=== PATIENT | female | born 1955 | race Caucasian/White ===

== ENCOUNTER → 2024-04-24 | Outpatient (CLI) | payer OTHER ==
[2024-04-24 13:23] LABS: BASOPHILS # (AUTO) 0.04 K/uL (0.00-0.20); BASOPHILS % (AUTO) 0.6 % (0.0-5.0); EOSINOPHILS # (AUTO) 0.12 K/uL (0.00-0.70); EOSINOPHILS % (AUTO) 1.8 % (0.0-8.0); HEMATOCRIT 38.1 % (36-48); IMMATURE GRANULOCYTE ABSOLUTE 0.02 K/uL (0-1); LYMPHOCYTES # (AUTO) 1.9 K/uL (1.0-4.8); LYMPHOCYTES % (AUTO) 29.1 % (21.0-51.0); MEAN CORPUSCULAR HEMOGLOBIN 28.9 pg (27.0-33.0); MEAN CORPUSCULAR HGB CONC 31.8 g/dL (32.0-36.0); MEAN CORPUSCULAR VOLUME 90.9 fL (79-99); MONOCYTES % (AUTO) 14.6 % (3.0-13.0); NEUTROPHILS # (AUTO) 3.6 K/uL (1.8-7.7); NEUTROPHILS % (AUTO) 53.6 % (40.0-77.0); PLATELET COUNT (AUTO) 217 K/uL (130-400); RED BLOOD CELL COUNT(AUTO) 4.19 MIL/uL (4.00-5.50); RED CELL DISTRIBUTION WIDTH 13.6 % (11.0-15.5); WHITE BLOOD COUNT (AUTO) 6.7 K/uL (4.8-10.8)
[2024-04-24 15:17] LABS: ALBUMIN 3.6 g/dL (3.5-5.0); BILIRUBIN,TOTAL 0.3 mg/dL (0.2-1.0); CREATININE 0.8 mg/dL (0.5-1.0); POTASSIUM 4.8 mmol/L (3.5-5.1); TOTAL PROTEIN, SERUM 7.8 g/dL (6.0-8.3)
== END | disposition home or self-care (01) ==
LOC: LAB 12:43
PROVIDERS: ATTEND Internal Medicine Gastroenterology
DX: K76.9 Liver disease, unspecified (principal)
CPT/HCPCS: 36415; 80053; 85025

== ENCOUNTER 2024-11-13 07:12 | Observation (INO) | payer OTHER ==
[2024-11-11 10:45] VITALS: BP 140/70; PULSE 54; RESP 18; TEMP 97.7
--- NOTE | 2024-11-11 10:45 | EKG ---
[facility] Test Date: 2024-11-11 Test Time: 11:27:30 Pat Name: SAE MORAN Department: [facility] Room: Gender: F Clinic Administrator: [id number] : 1955 Requested By: ALEISHA MATHIAS Order Number: [id number] Reading MD: Toño Owens Measurements Intervals [place] Rate: 56 P: 38 ID: [id number] QRS: 60 QRSD: 80 T: 38 QT: 440 QTc: 424 Interpretive Statements Sinus rhythm No previous ECG available for comparison Electronically Signed On 11-12-2024 12:48:19 GIFT WRAPPER by Toño Owens Please click the below link to view image of tracing.
[2024-11-11 11:09] LABS: BASOPHILS # (AUTO) 0.06 K/uL (0.00-0.20); BASOPHILS % (AUTO) 0.9 % (0.0-5.0); HEMATOCRIT 37.8 % (36-48); IMMATURE GRANULOCYTE ABSOLUTE 0.02 K/uL (0-1); LYMPHOCYTES # (AUTO) 1.6 K/uL (1.0-4.8); LYMPHOCYTES % (AUTO) 23.7 % (21.0-51.0); MEAN CORPUSCULAR HEMOGLOBIN 29.8 pg (27.0-33.0); MEAN CORPUSCULAR HGB CONC 32.3 g/dL (32.0-36.0); MEAN CORPUSCULAR VOLUME 92.2 fL (79-99); MONOCYTES # (AUTO) 0.5 K/uL (0.1-1.0); MONOCYTES % (AUTO) 7.4 % (3.0-13.0); NEUTROPHILS # (AUTO) 4.4 K/uL (1.8-7.7); NEUTROPHILS % (AUTO) 64.7 % (40.0-77.0); PLATELET COUNT (AUTO) 225 K/uL (130-400); RED CELL DISTRIBUTION WIDTH 13.7 % (11.0-15.5); WHITE BLOOD COUNT (AUTO) 6.8 K/uL (4.8-10.8)
[2024-11-11 11:15] LABS: CREATININE 0.6 mg/dL (0.5-1.0); POTASSIUM 4.5 mmol/L (3.5-5.1)
[~2024-11-13] VITALS: Ht 170.2 cm; Wt 74.4 kg
[2024-11-13] VITALS (27 sets, daily range): BP systolic 126–190; BP diastolic 58–81; PULSE 50–69; RESP 14–20; TEMP 97–98.7; O2SAT 97–98
[~2024-11-13 07:12] MED LIST: FAMO40TA7 PO; OMEP40CA21 PO
[2024-11-13] MEDS: ceFAZolin SODIUM 2 GM VIAL ONE (07:14)
[2024-11-13] MEDS: LACTATED RINGERS 1000ML 1,000 ML IV ONE (07:30)
[2024-11-13] MEDS ORDERED: ESCI-8 PO (07:57)
[2024-11-13] MEDS ORDERED: GABA300C PO (07:57)
[2024-11-13] MEDS ORDERED: ketaMINE 50MG/ML SYRINGE 50 MG/ML DISP.SYRIN ONE (08:09)
[2024-11-13] MEDS ORDERED: LIDOCAINE PF 100MG/5ML (2%) SYRINGE 5ML ONE (08:41)
[2024-11-13] MEDS ORDERED: proPOFol 10 MG/ML 20ML VIAL IV ONE (08:41)
[2024-11-13] MEDS ORDERED: FENTanyl CITRate PF 50 MCG/1 ML 2ML VIAL ONE (08:42)
[2024-11-13] MEDS ORDERED: rocuRONium bROMide 10MG/1ML 5ML VL ONE (08:42)
[2024-11-13] MEDS ORDERED: BUPIvacaine/PF 0.5% 30ML VIAL ONE (08:57)
[2024-11-13] MEDS ORDERED: ondanSETRON 4MG INJ ONE (10:31)
[2024-11-13] MEDS ORDERED: dexaMETHasone SOD PHOSPHATE 10MG/ML 1ML VIAL ONE (10:31)
[2024-11-13] MEDS: ceFAZolin SODIUM 2 GM VIAL IVPB ONE (10:40)
[2024-11-13] MEDS ORDERED: NEOSTIGMINE METHYLSULFATE 1MG/ML IV ONE (10:44)
[2024-11-13] MEDS ORDERED: GLYCOPYRROLATE 0.2 MG/ML 5 ML VIAL ONE (10:44)
[2024-11-13] MEDS ORDERED: ePHEDrine SULFate 50 MG/ML AMPULE ONE (10:50)
--- NOTE | 2024-11-13 11:58 | OP ---
Operative Note: DATE OF PROCEDURE: 11/13/24 SURGEON: ALEISHA MATHIAS MD CLINIQUE COUNTER MANAGER: Troy Mathias MD p.a. C ANESTHESIA: General and local ANESTHESIOLOGIST/FINANCIAL HEALTH COUNSELOR: [facility] [place] PREOPERATIVE DIAGNOSIS: Hiatal hernia and GERD POSTOPERATIVE DIAGNOSIS: As above. Paraesophageal and sliding component SYNOPSIS: Hernia repaired with mesh reinforcement and Trinity fundoplication performed without incident. PROCEDURE: 1. Robotic assisted hiatal hernia repair with mesh reinforcement 2. Trinity fundoplication 3. EGD ESTIMATED BLOOD LOSS: Minimal, less than 30 cc INDICATIONS: As above DESCRIPTION OF PROCEDURE: After standard precautions and preparations were undertaken a Veress needle and optical trocar were used to enter the abdominal cavity. All other instruments were placed under direct vision. The robotic system was docked in the standard fashion. We began our dissection by opening pars flaccida identifying the right nick of the diaphragm. From there we are able to enter into a nearly avascular plane into the mediastinum. We carried this dissection circumferentially to mobilize the distal esophagus and free up the incarcerated hernia contents which included the proximal cardia and fundus of the stomach. When the dissection was complete the right and left crura were free of unwanted attachments and the GE junction and stomach rested in the peritoneal cavity without any significant tension. We began our repair by suturing the right and left crura back in reapproximation with care taken not to over tighten. This was reinforced with a two sided slowly absorbable Bard mesh product. The mesh was sutured in place to prevent mesh migration and maximize tissue contact with the mesh. We mobilize the upper fundus utilizing bipolar dissecting device in anticipation of the fundoplication. The fundus was pulled through the retroesophageal window and wrapped circumferentially. Throughout the case my partner was utilizing the EGD scope to ensure that we were not over tightening the hiatal closure normal we over tightening the fundal wrap. Once the fundus was sutured in place for a distance of 3-1/2-4 cm we ran the scope through one final time to ensure that the wrap was appropriately located and that the tissues appeared healthy. The GE junction was resting in the abdominal cavity and retroflex view demonstrated that the wrap was in place and the mucosal surface of the esophagus and stomach were healthy and well perfused. All instrument counts were verified as correct including needles and sponges prior to ending the case. ALEISHA MATHIAS MD Nov 13, 2024 11:58
[2024-11-13] MEDS ORDERED: ondanSETRON 4MG INJ IVP PRN (12:00)
[2024-11-13] MEDS: ENOXAPARIN SODIUM 30 MG/0.3 ML SQ SCH (12:00)
[2024-11-13] MEDS ORDERED: PROCHLORPERAZINE 10MG/2ML INJ IV PRN (12:00)
--- NOTE | 2024-11-13 12:02 | PN ---
GENERAL SURGERY PROGRESS NOTE Date/Time Patient Seen: [11/13/2024 12:15 p.m. ] Problem List: [ ] Interval History: [ Postop day 0. Pain tolerable with p.r.n. medication.] Physical Examination: ABD: [Incisions clean, dry and intact, Dermabond in place] Vital Signs (last 8hr) Date Time Temp Pulse Resp B/P (MAP) Pulse Ox O2 Delivery O2 Flow Rate FiO2 11/13/24 07:20 97.0 60 18 145/75 99 Room Air 21 Laboratory: [ ] Diagnostics / Radiology: [Copy/Paste Echos/Imaging Report here] Impression and Plan: [Plan is for discharge home in the next day or two as long as patient tolerating p.o. intake, ambulatory and pain under control. Discussed with patient and family. They understand and agree. ] ALEISHA MATHIAS MD Nov 13, 2024 12:02
[2024-11-13] MEDS: MEPERIDINE-PF 100 MG/ML SYG ONE (12:26)
[2024-11-13] MEDS: hydroMORPHone 1 MG INJ IVP PRN (13:59)
[2024-11-13] MEDS: ketOROlac 30MG VIAL (30MG/ML) IV PRN (16:43)
[2024-11-13] MEDS: LACTATED RINGERS 1000ML 1,000 ML IV SCH (20:00)
[2024-11-13] MEDS: FAMOTIDINE 20MG VIAL IV SCH (22:20)
[2024-11-13] MEDS: FAMOTIDINE 20MG VIAL IV ONE (22:21)
[2024-11-14 03:44] VITALS: BP 109/61; PULSE 63; RESP 20; TEMP 97.8
[2024-11-14] MEDS: HYDROcod/acetaMINOPHEN 7.5/325 MG 15 ML UDCUP PO PRN (07:31)
[2024-11-14 08:00] VITALS: BP 148/83; PULSE 63; RESP 18; TEMP 97.9
[2024-11-14] MEDS: acetaMINOPHEN 100 ML ONE (09:09)
[2024-11-14 09:11] VITALS: O2SAT 96
[2024-11-14] MEDS ORDERED: hydroMORPHone 0.5 MG SYG (0.5MG/0.5ML) IVP PRN (10:30)
[2024-11-14] MEDS ORDERED: ketOROlac 15MG/ML VIAL (15MG/ML) IV PRN (10:30)
--- NOTE | 2024-11-14 11:22 | NUR ---
DCP Pt awake, alert, oriented x3 lives alone in motor home which has two steps to enter. PCP is Alfonso Robison. Pt states she is independent and has not had any home health or snf facility services. Pt anticipates discharge is for home. Person to call is Lanre Kendall [phone] if needed. Addendum: 11/14/24 at 1128 by BEL LUNA RN CM Amended: Links added.
[2024-11-14 12:00] VITALS: BP 133/61; PULSE 55; RESP 18; TEMP 97.7
--- NOTE | 2024-11-14 14:30 | NUR ---
Order received and patient observed ambulating in the halls no signs or safety concerns. DC PT as no skilled PT needed.
[2024-11-14 16:07] VITALS: BP 157/68; PULSE 59; RESP 18; TEMP 97.3
--- NOTE | 2024-11-14 16:17 | PN ---
GENERAL SURGERY PROGRESS NOTE Date/Time Patient Seen: [ November 14, 2024 at 4:00 p.m.] Problem List: [Diaphragmatic hernia without obstruction or gangrene Gastroesophageal reflux disease ] Interval History: [ Patient is a pleasant 69-year-old female status post hiatal hernia repair with Trinity fundoplication by Dr. Milton Alarcon. The patient is awake alert and oriented x3 and resting comfortably in bed. The patient is not in acute distress. Patient endorses pain that is tolerable with p.r.n. medications. Pat ient states pain radiates to the shoulders and epigastric region. Patient has been ambulating in passing gas. Patient reports 1 bowel movement this morning. Patient has been tolerating a clear liquid diet well without any upper or lower GI symptoms. Vital signs stable. Clinically stable.] Current Medications Medications (Trade) Dose Ordered Sig/Christi Route Start Time Stop Time Status Last Admin Dose Admin Enoxaparin Sodium (Lovenox) 30 mg Q12H SQ 11/13/24 12:00 12/13/24 11:59 11/14/24 13:28 30 MG Famotidine (Pepcid 20mg Vial) 20 mg BID IV 11/13/24 21:00 12/13/24 20:59 11/14/24 09:11 20 MG Lactated Ringer's 1,000 ml @ 125 mls/hr Q8H IV 11/13/24 12:00 12/13/24 11:59 11/14/24 13:29 125 MLS/HR Physical Examination: GENERAL: [No acute distress.] HEAD: [Normal with no signs of head trauma.] EYES: [PERRLA, EOMI, conjunctiva and sclera normal.] ENT: [Hearing grossly intact, normal oropharynx.] NECK: [Supple without JVD. There is no tenderness, lymphadenopathy, or masses. No thyromegaly. Normal carotid upstrokes without bruits.] LUNGS: [Clear breath sounds bilaterally. There are right basilar rales one third of the way up the chest. No wheezes, or rhonchi.] HEART: [Normal rate and rhythm. Normal S1 and S2 without mumurs, gallop or rub.] VASC: [Peripheral pulses +2 bilaterally.] ABD: [Bowel sounds normal, soft, nontender, no masses, no organomegaly. No audible bruits. Incisions clean and dry and well approximated Dermabond in place. Appropriate tenderness to palpation.] : [Not examined] LYMPH: [No lymphadenopathy noted.] EXT: [No clubbing, cyanosis or edema.] SKIN: [No rashes or lesions noted.] NEURO: [Awake, alert, and oriented x3. No focal sensory or strength deficits noted.] Vital Signs (last 8hr) Date Time Temp Pulse Resp B/P (MAP) Pulse Ox O2 Delivery O2 Flow Rate FiO2 11/14/24 16:07 97.3 59 18 157/68 97 Room Air 11/14/24 12:00 97.7 55 18 133/61 Room Air Laboratory: [ ] Diagnostics / Radiology: [Copy/Paste Echos/Imaging Report here] Impression and Plan: [The patient is progressing well. We will continue to monitor and treat pain as needed. GI/DVT prophylaxis recommended encouraged. Incision care, hydration, activity and dietary restrictions discussed with the patient. The patient understands and agrees. The plan is to discharge the patient home today and follow up outpatient in 1 week. Postop medications and follow up appointment established by my office staff. ] JOHN BOWLING Nov 14, 2024 16:17
--- NOTE | 2024-11-14 16:18 | DS ---
Discharge Summary Assessment Postoperative day 1. The patient is progressing very well. Vital signs stable. Clinically stable. Patient overall happy with the procedure and ready to go home today. Hospital Course As per progress note done 11/14/2024 JOHN BOWLING Nov 14, 2024 16:18
--- NOTE | 2024-11-14 17:00 | NUR ---
DISCHARGE PIV DC'D DISCHARGE INSTRUCTIONS GIVEN TO THE PATIENT PATIENT IS AWARE THAT PRESCRIPTIONS WILL BE SENT FROM MD OFFICE PATIENT IS AWARE OF FOLLOW UP APPOINTMENT ON 11/17/24 AT 10:30 ALL QUESTIONS ANSWERED PRIOR TO DISCHARGE
== END 2024-11-14 17:50 | disposition home or self-care (01) ==
LOC: DAH 07:12 → INTOOBSV 07:13 → DAHIP 07:13 → DAH 07:13 → 3DH 13:00
PROVIDERS: ADMIT Surgery; ATTEND Surgery
DX: K44.9 Diaphragmatic hernia without obstruction or gangrene (principal); K21.00 Gastro-esophageal reflux disease with esophagitis, without bleeding; R13.10 Dysphagia, unspecified; K76.0 Fatty (change of) liver, not elsewhere classified; Z79.899 Other long term (current) drug therapy
CPT/HCPCS: 80048; 85025; 86850; 86900; 86901; 36415; 93005; 43282; 96374; 96376 ×2; 96372 ×2; 96375; A6260; A4663; A4215 ×2; A4223 ×2; A4213; A4222; A4216; A4600; J7120; J3490 ×7; J3010; J1171 ×4; J1100; J2003; J1650 ×2; J2704; J2405; J1885 ×2; J2710; J0665 ×2; J2175; J0690 ×2; C1781; A4930; G0378 ×4; 43235

== ENCOUNTER → 2025-07-17 | Outpatient (CLI) | payer OTHER ==
[~2025-07-17] MED LIST changes: +DIATR MEGLU/DIATRIZOATE SODIUM 30 ML BOTTLE ONE; +ESCI-8 PO; +GABA300C PO
--- NOTE | 2025-07-17 12:39 | HMCIMG ---
DOUBLE CONTRAST UPPER GI SERIES with small bowel follow-through: Attending: The study was performed using provocative maneuvers After swallowing effervescent crystal and thick barium, there is no definite intrinsic or extrinsic lesion seen in the esophagus. The stomach is normal in size, shape, and configuration. The rugal folds appear to be normal. The duodenal bulb, duodenal sweep, and upper jejunum appear to be normal. There is normal transit time and 45 minutes and has reached right colon. Fluoroscopy time: 0.7 minutes. IMPRESSION: NORMAL DOUBLE CONTRAST UPPER GI SERIES.
== END | disposition home or self-care (01) ==
LOC: RAH 09:47
PROVIDERS: ATTEND Surgery
DX: K21.00 Gastro-esophageal reflux disease with esophagitis, without bleeding (principal); K44.9 Diaphragmatic hernia without obstruction or gangrene; R13.10 Dysphagia, unspecified
CPT/HCPCS: 74240; Q9963